=== PATIENT | male | born 1975 | race Hispanic/Latino ===

== ENCOUNTER → 2023-06-06 | Outpatient (CLI) | payer OTHER ==
[~2023-06-06] VITALS: Ht 15.2 cm; Wt 179.6 kg
== END | disposition home or self-care (01) ==
LOC: DTH 07:44
PROVIDERS: ATTEND Surgery
DX: Z71.3 Dietary counseling and surveillance (principal); E66.01 Morbid (severe) obesity due to excess calories; G47.33 Obstructive sleep apnea (adult) (pediatric); M19.90 Unspecified osteoarthritis, unspecified site; Z68.43 Body mass index [BMI] 50.0-59.9, adult
CPT/HCPCS: 97802

== ENCOUNTER → 2023-12-25 | Outpatient (CLI) | payer OTHER ==
[~2023-12-25] VITALS: Ht 15.2 cm; Wt 181.4 kg
== END | disposition home or self-care (01) ==
LOC: DTH 08:43
PROVIDERS: ATTEND Surgery
DX: E66.01 Morbid (severe) obesity due to excess calories (principal); G47.33 Obstructive sleep apnea (adult) (pediatric); K21.9 Gastro-esophageal reflux disease without esophagitis; E78.00 Pure hypercholesterolemia, unspecified
CPT/HCPCS: 97802

== ENCOUNTER → 2023-12-25 | Outpatient (CLI) | payer MEDICAID ==
[2023-12-25 10:53] LABS: BASOPHILS # (AUTO) 0.03 K/uL (0.00-0.20); BASOPHILS % (AUTO) 0.3 % (0.0-5.0); EOSINOPHILS # (AUTO) 0.36 K/uL (0.00-0.70); EOSINOPHILS % (AUTO) 3.9 % (0.0-8.0); HEMATOCRIT 44.5 % (42-54); IMMATURE GRANULOCYTE ABSOLUTE 0.05 K/uL (0-1); LYMPHOCYTES # (AUTO) 2.2 K/uL (1.0-4.8); LYMPHOCYTES % (AUTO) 24.3 % (21.0-51.0); MEAN CORPUSCULAR HEMOGLOBIN 28.8 pg (27.0-33.0); MEAN CORPUSCULAR HGB CONC 31.2 g/dL (32.0-36.0); MEAN CORPUSCULAR VOLUME 92.1 fL (79-99); MONOCYTES # (AUTO) 0.7 K/uL (0.1-1.0); MONOCYTES % (AUTO) 7.3 % (3.0-13.0); NEUTROPHILS # (AUTO) 5.9 K/uL (1.8-7.7); NEUTROPHILS % (AUTO) 63.7 % (40.0-77.0); PLATELET COUNT (AUTO) 283 K/uL (130-400); RED BLOOD CELL COUNT(AUTO) 4.83 MIL/uL (4.50-6.20); RED CELL DISTRIBUTION WIDTH 14.7 % (11.0-15.5); WHITE BLOOD COUNT (AUTO) 9.2 K/uL (4.8-10.8)
[2023-12-25 10:58] LABS: HEMOGLOBIN A1C 5.2 % (4.0-6.0)
[2023-12-25 11:14] LABS: ALBUMIN 3.5 g/dL (3.5-5.0); BILIRUBIN,TOTAL 0.7 mg/dL (0.2-1.0); CREATININE 0.7 mg/dL (0.5-1.3); POTASSIUM 4.2 mmol/L (3.5-5.1); T4 (THYROXINE) 5.4 ug/dL (4.7-13.3); THYROID STIMULATING HORMONE 2.84 uIU/mL (0.36-3.74)
[2023-12-25 11:27] LABS: MAGNESIUM 2.2 mg/dL (1.80-2.40)
== END | disposition home or self-care (01) ==
LOC: LAB 09:23
PROVIDERS: ATTEND Surgery
DX: G47.33 Obstructive sleep apnea (adult) (pediatric) (principal); E66.01 Morbid (severe) obesity due to excess calories; M47.815 Spondylosis without myelopathy or radiculopathy, thoracolumbar region; E78.00 Pure hypercholesterolemia, unspecified; K21.9 Gastro-esophageal reflux disease without esophagitis; Z68.44 Body mass index [BMI] 60.0-69.9, adult
CPT/HCPCS: 36415; 71046; 80053; 80061; 82306; 82607; 82746; 83036; 83540; 83735; 84207; 84425; 84436; 84443; 84446; 84481; 84590; 84630; 85025

== ENCOUNTER → 2024-01-21 | Outpatient (CLI) | payer OTHER | END | disposition home or self-care (01) | LOC: DTH 15:03 | PROVIDERS: ATTEND Surgery | DX: E66.01 Morbid (severe) obesity due to excess calories (principal); G47.33 Obstructive sleep apnea (adult) (pediatric); K21.9 Gastro-esophageal reflux disease without esophagitis; E78.00 Pure hypercholesterolemia, unspecified; Z68.44 Body mass index [BMI] 60.0-69.9, adult; Z71.3 Dietary counseling and surveillance | CPT/HCPCS: 97803 ==

== ENCOUNTER → 2024-02-19 | Outpatient (CLI) | payer MEDICAID, OTHER | END | disposition home or self-care (01) | LOC: SHCH 08:10 | PROVIDERS: ATTEND Internal Medicine | DX: R06.02 Shortness of breath (principal) | CPT/HCPCS: 93306 ==

== ENCOUNTER → 2024-02-19 | Outpatient (CLI) | payer OTHER | END | disposition home or self-care (01) | LOC: DTH 15:16 | PROVIDERS: ATTEND Surgery | DX: E66.01 Morbid (severe) obesity due to excess calories (principal); Z71.3 Dietary counseling and surveillance; G47.33 Obstructive sleep apnea (adult) (pediatric); K21.9 Gastro-esophageal reflux disease without esophagitis; E78.00 Pure hypercholesterolemia, unspecified | CPT/HCPCS: 97803 ==

== ENCOUNTER → 2024-03-19 | Outpatient (CLI) | payer SELFPAY | END | disposition home or self-care (01) | LOC: DTH 10:58 | PROVIDERS: ATTEND Surgery | DX: E66.01 Morbid (severe) obesity due to excess calories (principal); G47.33 Obstructive sleep apnea (adult) (pediatric); K21.9 Gastro-esophageal reflux disease without esophagitis; E78.00 Pure hypercholesterolemia, unspecified; Z68.44 Body mass index [BMI] 60.0-69.9, adult; Z71.3 Dietary counseling and surveillance | CPT/HCPCS: 97803 ==

== ENCOUNTER → 2024-05-27 | Outpatient (CLI) | payer OTHER | END | disposition home or self-care (01) | LOC: DTH 05-19 08:57 | PROVIDERS: ATTEND Surgery | DX: E66.01 Morbid (severe) obesity due to excess calories (principal); G47.33 Obstructive sleep apnea (adult) (pediatric); K21.9 Gastro-esophageal reflux disease without esophagitis; E78.00 Pure hypercholesterolemia, unspecified; Z71.3 Dietary counseling and surveillance; Z68.44 Body mass index [BMI] 60.0-69.9, adult | CPT/HCPCS: 97803 ==

== ENCOUNTER → 2024-06-23 | Outpatient (CLI) | payer OTHER | END | disposition home or self-care (01) | LOC: DTH 15:22 | PROVIDERS: ATTEND Surgery | DX: E66.01 Morbid (severe) obesity due to excess calories (principal); G47.33 Obstructive sleep apnea (adult) (pediatric); E78.00 Pure hypercholesterolemia, unspecified; K21.9 Gastro-esophageal reflux disease without esophagitis; Z71.3 Dietary counseling and surveillance; Z68.44 Body mass index [BMI] 60.0-69.9, adult | CPT/HCPCS: 97803 ==

== ENCOUNTER 2024-06-29 06:47 | Day surgery (SDC) | payer MEDICAID ==
[2024-06-29] VITALS (14 sets, daily range): BP systolic 100–138; BP diastolic 55–79; PULSE 59–131; RESP 16–18; TEMP 97.2–97.6
[~2024-06-29 06:47] MED LIST: ASPI-1197 PO; ATOR20TA65 PO; DULO20CA18 PO; MULT-1367 PO; TRAZ-185 PO
[2024-06-29] MEDS ORDERED: proPOFol 10 MG/ML 20ML VIAL IV ONE (08:14)
[2024-06-29] MEDS ORDERED: ketaMINE 50MG/ML SYRINGE 50 MG/ML DISP.SYRIN ONE (08:14)
[2024-06-29] MEDS: 0.9%NACL 1000ML 1,000 ML IV ONE (08:25)
--- NOTE | 2024-06-29 10:54 | OP ---
Operative Note: DATE OF PROCEDURE: 06/29/24 SURGEON: ADEOLA GARCIA MD WINERY CELLAR HAND: [] ANESTHESIA: [] Mac ANESTHESIOLOGIST/CIRCUIT RIDER: [] PREOPERATIVE DIAGNOSIS: [] GERD POSTOPERATIVE DIAGNOSIS: [] The same SYNOPSIS: [] PROCEDURE: [] Upper endoscopy ESTIMATED BLOOD LOSS: [] None INDICATIONS: [] DESCRIPTION OF PROCEDURE: [] With the patient in conscious sedation I inserted the endoscope through the mouth. We advanced this to the esophagus was completely normal. Z-line was at 40 cm. We entered the stomach and insufflated with air I was able to visualize the pylorus and placed the endoscope through the second portion of the duodenum. There was normal anatomy and no pathology. I retrieved the scope and a saw the stomach there was completely normal in the antrum. I retroflexed it and examined the body and fundus and there was no pathology. There was no hiatal hernia seen. Before retrieving the scope I suctioned all the fluid and air. Procedure was completed without any complication. ADEOLA GARCIA MD Jun 29, 2024 10:54
== END 2024-06-29 09:45 | disposition home or self-care (01) ==
LOC: ENDO 06:47 → DAH 06:47 → ENDO 09:45
PROVIDERS: ATTEND Surgery
DX: K21.9 Gastro-esophageal reflux disease without esophagitis (principal); I10 Essential (primary) hypertension; E66.01 Morbid (severe) obesity due to excess calories; Z68.44 Body mass index [BMI] 60.0-69.9, adult; Z79.82 Long term (current) use of aspirin; Z79.899 Other long term (current) drug therapy
CPT/HCPCS: 43235; J7030; J2704; J3490; A4620; A4215 ×2; A4223; A4222; A4221; A4663; A4606

== ENCOUNTER 2024-07-30 10:00 | Observation (INO) | payer MEDICAID ==
[~2024-07-30] VITALS: Ht 167.6 cm; Wt 174.0 kg
[2024-07-30 10:58] LABS: BASOPHILS # (AUTO) 0.04 K/uL (0.00-0.20); BASOPHILS % (AUTO) 0.4 % (0.0-5.0); EOSINOPHILS # (AUTO) 0.46 K/uL (0.00-0.70); EOSINOPHILS % (AUTO) 4.5 % (0.0-8.0); HEMATOCRIT 45.6 % (42-54); IMMATURE GRANULOCYTE ABSOLUTE 0.02 K/uL (0-1); LYMPHOCYTES # (AUTO) 2.6 K/uL (1.0-4.8); LYMPHOCYTES % (AUTO) 25.2 % (21.0-51.0); MEAN CORPUSCULAR HEMOGLOBIN 28.5 pg (27.0-33.0); MEAN CORPUSCULAR HGB CONC 31.4 g/dL (32.0-36.0); MEAN CORPUSCULAR VOLUME 90.8 fL (79-99); MONOCYTES # (AUTO) 0.6 K/uL (0.1-1.0); MONOCYTES % (AUTO) 5.9 % (3.0-13.0); NEUTROPHILS # (AUTO) 6.5 K/uL (1.8-7.7); NEUTROPHILS % (AUTO) 63.8 % (40.0-77.0); PLATELET COUNT (AUTO) 293 K/uL (130-400); RED BLOOD CELL COUNT(AUTO) 5.02 MIL/uL (4.50-6.20); RED CELL DISTRIBUTION WIDTH 14.3 % (11.0-15.5); WHITE BLOOD COUNT (AUTO) 10.2 K/uL (4.8-10.8)
[2024-07-30 11:04] LABS: CREATININE 0.8 mg/dL (0.5-1.3); POTASSIUM 4.5 mmol/L (3.5-5.1)
[2024-07-30 11:27] LABS: INR 1.01 (0.85-1.15); PROTHROMBIN TIME 10.9 SEC (9.6-11.6)
[2024-07-30 11:29] VITALS: BP 137/71; PULSE 54; RESP 18; TEMP 97.2
[2024-08-03] VITALS (19 sets, daily range): BP systolic 108–167; BP diastolic 66–94; PULSE 65–86; RESP 13–21; TEMP 96.7–98.8; O2SAT 97
[2024-08-03] MEDS: CLINDAMYCIN IVPB 900MG/50ML 0 ML IV ONE (08:58)
[2024-08-03] MEDS: LACTATED RINGERS 1000ML 1,000 ML IV ONE (09:28)
[2024-08-03] MEDS: ceFAZolin SODIUM 1 GM VIAL ONE (09:31)
[2024-08-03] MEDS: ceFAZolin SODIUM 2 GM VIAL ONE (09:31)
[2024-08-03] MEDS ORDERED: rocuRONium bROMide 10MG/1ML 5ML VL ONE (10:48)
[2024-08-03] MEDS ORDERED: NEOSTIGMINE METHYLSULFATE 1MG/ML IV ONE (10:48)
[2024-08-03] MEDS ORDERED: LIDOCAINE HCL MPF 1% 5ML VIAL ONE (10:48)
[2024-08-03] MEDS ORDERED: GLYCOPYRROLATE 0.2 MG/ML 5 ML VIAL ONE (10:48)
[2024-08-03] MEDS ORDERED: proPOFol 10 MG/ML 20ML VIAL IV ONE (10:48)
[2024-08-03] MEDS ORDERED: MIDAZOLAM HCL 1 MG/ML 2ML VIAL ONE (10:48)
[2024-08-03] MEDS ORDERED: FENTanyl CITRate PF 50 MCG/1 ML 5ML AMP IV ONE (10:49)
[2024-08-03] MEDS ORDERED: SUCCINYLCHOLINE CHLORIDE 20 MG/ML 10 ML VIAL ONE (11:07)
[2024-08-03] MEDS: ceFAZolin SODIUM 3 GM VIAL IVPB ONE (11:10)
[2024-08-03] MEDS ORDERED: ondanSETRON 4MG INJ ONE (11:23)
[2024-08-03] MEDS ORDERED: LIDOCAINE HCL 1% 20 ML VIAL ONE ×2 (11:33→11:44)
[2024-08-03] MEDS ORDERED: BUPIvacaine/PF 0.5% 30ML VIAL ONE (11:33)
[2024-08-03] MEDS ORDERED: ketOROlac 30MG VIAL (30MG/ML) ONE (13:56)
--- NOTE | 2024-08-03 14:19 | OP ---
Operative Note: DATE OF PROCEDURE: 08/03/24 SURGEON: ADEOLA GARCIA MD MELT DOWN FURNACE OPERATOR: [] ANESTHESIA: []general ANESTHESIOLOGIST/DEPUTY SHERIFF/INVESTIGATOR: [] PREOPERATIVE DIAGNOSIS: [] Morbid obesity POSTOPERATIVE DIAGNOSIS: [] The same SYNOPSIS: [] PROCEDURE: [] Robotic gastric bypass ESTIMATED BLOOD LOSS: [] Minimal INDICATIONS: [] DESCRIPTION OF PROCEDURE: []With the patient prepped and draped in the usual fashion and after timeout we placed a left upper quadrant Veress needle and the abdomen was insufflated. A supraumbilical incision was done after placing local anesthesia and an 8 mm da Claire trocar was inserted. Under direct vision we remove the needle and I placed a 12 mm trocar in the left side of the abdomen and under direct vision and a 5 mm trocar in the right side to place a liver retractor. I then proceeded to place a 12 mm trocar in the left side of the abdomen in the midclavicular line and a 8 mm trocar lateral left side. We injected lidocaine before every incision. After adequate placement of the trocars and the placement of the liver retractor I injected 20 cc 0.25% Marcaine on each side of the abdomen under direct vision as an abdominal block. I docked the robot and then went to the console. Attention was given to the large omentum and this was divided with the vessel sealer. After this division identified the ligament of Treitz and a point 50 cm was identified and a 2-0 silk suture was placed. Attention was then given to the upper stomach. A bougie was visualized and I start developing a window behind the stomach from the lesser sac. The lesser sac vasculature was divided with the vesel sealer. After creating the window a blue stapler was placed and we started transecting the stomach. A couple more of blue and white stapler were placed just besides the bougie in order to create a tubular small pouch. This was done without any complications. I brought the small bowel that was previously identified besides the newly created pouch and I then opened the smal l bowel and the pouch. A [id number] jejunojejunostomy was created about 40 mm with a blue stapler. I then closed the enterotomy with a V-Loc 2 0 in 2 layers. The bougie was passed through the anastomosis before placing the second layer. After adequate hemostasis and being comfortable with the closure of the enterostomy and the gastrostomy I divided the small bowel proximal to the anastomosis. At this point I insufflated air through the bougie and submerged the anastomosis under water and no bubbles were seen. I confirmed this also with an endoscopy that was done and we insufflated the pouch of the passing also the anastomosis. In order to do that we removed the bougie. I ran the bowel from the gastrojejunostomy about 100 cm in order to do a [id number] jejunojejunostomy. This was created with a white staplers and the enterotomy was closed with a white stapler without narrowing the alimentary tract. I then closed the potential side for internal hernia with a V-Loc 2-0 running. After confirming adequate hemostasis and suctioning I then remove all the instruments and trocars under direct vision. We undocked the robot and all incisions were closed with 4-0 Monocryl and Steri-Strips. ADEOLA GARCIA MD Aug 03, 2024 14:19
[2024-08-03] MEDS: MEPERIDINE-PF 25 MG/ML SYG ONE (15:17)
[2024-08-03] MEDS: SUGAMMADEX SODIUM 200 MG/2 ML VIAL IV ONE (15:19)
[2024-08-03] MEDS: INSULIN humuLIN R 100 UNIT/ML 3ML SQ SCH (16:30)
[2024-08-03] MEDS: morPHINE 4 MG SYG IVP PRN (18:55)
[2024-08-03] MEDS ORDERED: hydrALAZine 20MG/ML VIAL IV PRN (19:00)
[2024-08-03] MEDS: LACTATED RINGERS 1000ML 1,000 ML IV SCH (19:43)
[2024-08-03] MEDS: ceFAZolin SODIUM 2 GM VIAL IVPB SCH (19:44)
[2024-08-03] MEDS ORDERED: MAGNESIUM 2GM PREMIX 50ML 50 ML IV PRN (20:30)
[2024-08-03] MEDS ORDERED: PoTASSium chloRIDE 20MEQ/100ML 100 ML IV PRN (20:30)
[2024-08-03] MEDS ORDERED: PoTASSium chl 10% ELIXIR 20MEQ 20 MEQ/15 ML UDCUP PO PRN (20:30)
[2024-08-03] MEDS ORDERED: PoTASSium chloRIDE 20MEQ ER 20 MEQ ERTAB PO PRN (20:30)
--- NOTE | 2024-08-03 20:47 | CONS ---
[facility] CONSULTATION NOTE Date of Service: Aug 03, 2024 Reason for Consultation: [ Medical management ] Requesting Physician: [ ] PCP: Gabino Mccloud HISTORY OF PRESENT ILLNESS: This is a 48-year-old male with past medical history of morbid obesity, GERD, obstructive sleep apnea on CPAP at home, hyperlipidemia, hypertension, peripheral neuropathy, anxiety disorder and depression who underwent status post robotic gastric bypass today 08/03/[address] Her. Seen and examined patient in room 414,awake,alert and oriented ,patient appears comfortablestates he just received Morphine.Patient reports he started burping.Patient is on IVF and on oxygen supplementation.Patient denies fever,chills,nausea,vomiting,cough,chest pain,palpitation and shortness of breath.Latest V/S T 98.2, rate 79, blood pressure 167/94, saturation 98% on 2 L nasal cannula. Hospitalist is consulted for medical management. REVIEW OF SYSTEMS CONSTITUTIONAL: Denies fevers, chills, or night sweats. No unintentional weight loss reported. NEUROLOGICAL: Denies headache, amaurosis fugax, motor weakness, sensory deficit, vertigo/spinning sensation, gait abnormalities, or tremors. ENT: No hearing loss, otalgia, otorrhea, rhinitis, rhinorrhea, hoarseness, or sore throat. CARDIOVASCULAR: Denies any exertional angina, dyspnea on exertion, orthopnea, paroxysmal nocturnal dyspnea, palpitations, life-threatening arrhythmias, claudication. PULMONARY: Denies any shortness of breath, cough, phlegm/sputum, hemoptysis, pleuritic chest pain. SLEEP: Denies morning headaches, daytime somnolence or napping. Denies difficulty falling asleep, staying asleep, waking from sleep. Denies knowledge of snoring. GASTROINTESTINAL: Denies any type of dysphagia to either liquids or solids. Denies nausea, vomiting, pyrosis, early satiety, abdominal pain, diarrhea, constipation, or changes in stool consistency or caliber. Denies coffee-ground emesis, hematemesis, hematochezia, or melanotic stools. GENITOURINARY: Denies frequency, urgency, nocturia, hematuria or incontinence (Storage/Irritative symptoms.) Low urinary stream, straining to void, urinary intermittency or hesitancy, splitting of the voiding stream, terminal dribbling. ENDOCRINOLOGIC: Denies polyuria, polydipsia, polyphagia or heat/cold intolerances. HEMATOLOGIC: Denies thrombophilia/previous clots, or coagulopathy/bleeding disorders. ONCOLOGIC: Denies personal history of malignancy. DERMATOLOGIC: Denies rashes or pruritus. PSYCHIATRIC: Denies any suicidal or homicidal ideation. Denies hallucinations. PAST MEDICAL HISTORY: [ morbid obesity, GERD, obstructive sleep apnea on CPAP at home, hyperlipidemia, hypertension, peripheral neuropathy, anxiety disorder and depression ] PAST SURGICAL HISTORY: [ Bilateral knee replace and hardware removal of right knee 2021 ] PAST SOCIAL HISTORY: [ Patient states he used to smoke two packs of cigarettes a day for 20 years and planning to quit. Patient admits to smoking marijuana last use was yesterday but denies cocaine use and alcohol use ] FAMILY HISTORY: [ Heart disease, diabetes and hypertension ] Coded Allergies: No Known Allergies (Verified Allergy, Unknown, 06/26/24) PHYSICAL EXAM GENERAL APPEARANCE: The patient is awake, alert, and oriented, in no acute cardiopulmonary distress. NEUROLOGICAL: Cranial nerves II-XII grossly intact. Motor is 5/5 in bilateral upper and lower extremities proximal to distal. No sensory deficits. HEENT: Face is symmetric. Pupils are equal and reactive. Extraocular movements are intact. NECK: Supple. No JVD. No thyromegaly. No submental, submandibular, pre- /postauricular, occipital or supraclavicular lymphadenopathy. CHEST: Normal chest expansion. No Telemetry. LUNGS: Absence of any rales, rhonchi or any wheezing. CARDIOVASCULAR: Regular. S1 and S2 normal. No appreciable rubs, murmurs or gallops. ABDOMEN: Soft, nontender, and nondistended. There is no rebound, voluntary guarding, or rigidity. : Deferred. No Felder. EXTREMITIES: Non-edematous and not cyanotic. No clubbing. Good capillary refill. SKIN: No skin breakdown. Vital Sign (Last 24 Hours) 08/03/24 15:45 O2 Flow Rate 2.0 LABS: Laboratory: Test 08/03/24 14:51 Range/Units Whole Blood Glucose 146 H 70-110 MG/DL DIAGNOSTICS / RADIOLOGY: [ ] ASSESSMENT: Severe Morbid Obesity S/P Robotic gastric bypass on 08/03/2024 performed bypato FRANK POA Obstructive Sleep Apnea on CPAP Therapy at home POA Hypertension POA Hyperlipidemia POA Peripheral Neuropathy POA Active cigarette smoker POA Positive marijuana use POA History of Complete Bilateral knee replacement POA PLAN: Will continue to follow patient in medical surgical floor Continue IV fluids We will continue on hydralazine 10 mg IV q.6 hours p.r.n. for systolic blood pressure above 160 We will continue famotidine 20 mg b.i.d. for GI prophylaxis We will continue sliding scale insulin a.c. and HS and hypoglycemia protocol We will replace electrolytes as needed per protocol We will add p.r.n. medication for pain nausea fever and vomiting Counseled on cigarette smoking and marijuana use cessation Case management service requested We will check labs in a.m. Further recommendations to follow depending upon hospitalization course Case discussed with the attending MD and came up with the above treatment and plan of care ADVANCED CARE PLANNING 1. Which of the following were discussed? Hospice Care - No Therapeutic options - Yes Advance Directives - No Other discussions - 2. Discussed with who? Patient 3. Voluntary nature of this service was explained to the patient? Yes 4. Amount of time spent - 18_ 5. Reviewed by Physician? (if this service was performed by NPP) Yes Patient seen and examined by me. Agree with note by CASH MANAGEMENT CLERK SEE ADDITIONAL ORDERS PER CHART DISCUSSED WITH NURSING STAFF KRISTEL CEJA COMMUNICATIONS SUPERINTENDENT Aug 03, 2024 20:47
[2024-08-03] MEDS: ENOXAPARIN SODIUM 30 MG/0.3 ML SQ SCH (21:24)
[2024-08-03] MEDS: FAMOTIDINE 20MG VIAL IV SCH (21:24)
[2024-08-03] MEDS: ketOROlac 30MG VIAL (30MG/ML) IM PRN (21:32)
[2024-08-04] VITALS (7 sets, daily range): BP systolic 117–147; BP diastolic 65–84; PULSE 67–85; RESP 16–20; TEMP 98–99; O2SAT 96–97
[2024-08-04] MEDS: ceFAZolin SODIUM 2 GM VIAL IVPB ONE (02:57)
[2024-08-04 05:18] LABS: BASOPHILS # (AUTO) 0.03 K/uL (0.00-0.20); BASOPHILS % (AUTO) 0.2 % (0.0-5.0); EOSINOPHILS # (AUTO) 0.01 K/uL (0.00-0.70); EOSINOPHILS % (AUTO) 0.1 % (0.0-8.0); HEMATOCRIT 36.3 % (42-54); IMMATURE GRANULOCYTE ABSOLUTE 0.05 K/uL (0-1); LYMPHOCYTES # (AUTO) 1.8 K/uL (1.0-4.8); LYMPHOCYTES % (AUTO) 14.1 % (21.0-51.0); MEAN CORPUSCULAR HEMOGLOBIN 28.4 pg (27.0-33.0); MEAN CORPUSCULAR HGB CONC 30.9 g/dL (32.0-36.0); MEAN CORPUSCULAR VOLUME 91.9 fL (79-99); MONOCYTES # (AUTO) 1.1 K/uL (0.1-1.0); MONOCYTES % (AUTO) 8.8 % (3.0-13.0); NEUTROPHILS # (AUTO) 9.5 K/uL (1.8-7.7); NEUTROPHILS % (AUTO) 76.4 % (40.0-77.0); PLATELET COUNT (AUTO) 268 K/uL (130-400); RED BLOOD CELL COUNT(AUTO) 3.95 MIL/uL (4.50-6.20); RED CELL DISTRIBUTION WIDTH 14.4 % (11.0-15.5); WHITE BLOOD COUNT (AUTO) 12.4 K/uL (4.8-10.8)
[2024-08-04 05:36] LABS: CREATININE 1.3 mg/dL (0.5-1.3); POTASSIUM 4.4 mmol/L (3.5-5.1)
[2024-08-04 05:41] LABS: HEMOGLOBIN A1C 5.4 % (4.0-6.0)
[2024-08-04 05:58] LABS: THYROID STIMULATING HORMONE 0.95 uIU/mL (0.36-3.74)
--- NOTE | 2024-08-04 11:11 | PN ---
This is a 48-year-old male with gastric bypass postop day one by Dr. Foss Interval history: This 48-year-old male seen in his room resting Patient needing walker to ambulate today Patient tolerating bariatric phase one diet Incisions clean and dry Patient has received Lovenox for today Labs and vitals unremarkable Physical exam General: Awake alert and oriented Heart: Regular rate and rhythm} Lungs: Clear to auscultation no distress Abdomen: [Soft, nontender, nondistended Assessment : This is a 48-year-old male status post gastric bypass postop day one Plan: Patient to remain overnight for observation PT to evaluate and make recommendations for potential discharge Patient to continue with Lovenox daily\ Diet to remain on bariatric phase one for the next week Dr. Foss to be updated in patient's status and surgery to follow patient closely Vitals/Labs Vital Signs Date Time Temp Pulse Resp B/P (MAP) Pulse Ox O2 Delivery O2 Flow Rate FiO2 08/04/24 07:05 98.2 79 20 143/84 96 Room Air 21 08/03/24 21:24 0 Laboratory Tests 08/04/24 05:02 Medications Current Medications Clindamycin HCl/ Dextrose 0 ml @ As Directed STK-MED ONCE IV; Start 08/03/24 at 08:58; Stop 08/03/24 at 08:58; Status DC Lactated Ringer's 1,000 ml @ As Directed STK-MED ONCE IV Last administered on 08/03/24at 09:28; Start 08/03/24 at 08:58; Stop 08/03/24 at 08:58; Status DC Cefazolin Sodium 1 gm STK-MED ONCE .ROUTE; Start 08/03/24 at 09:31; Stop 08/03/24 at 09:32; Status DC Cefazolin Sodium 2 gm STK-MED ONCE .ROUTE; Start 08/03/24 at 09:31; Stop 08/03/24 at 09:32; Status DC Lidocaine HCl 5 ml STK-MED ONCE .ROUTE; Start 08/03/24 at 10:48; Stop 08/03/24 at 10:48; Status DC Propofol 200 mg STK-MED ONCE IV; Start 08/03/24 at 10:48; Stop 08/03/24 at 10:48; Status DC Glycopyrrolate 1 mg STK-MED ONCE .ROUTE; Start 08/03/24 at 10:48; Stop 08/03/24 at 10:49; Status DC Neostigmine Methylsulfate 10 mg STK-MED ONCE IV; Start 08/03/24 at 10:48; Stop 08/03/24 at 10:49; Status DC Midazolam HCl 2 mg STK-MED ONCE .ROUTE; Start 08/03/24 at 10:48; Stop 08/03/24 at 10:49; Status DC Rocuronium Pamplin 50 mg STK-MED ONCE .ROUTE; Start 08/03/24 at 10:48; Stop 08/03/24 at 10:49; Status DC Fentanyl Citrate 250 mcg STK-MED ONCE IV; Start 08/03/24 at 10:49; Stop 08/03/24 at 10:49; Status DC Succinylcholine Chloride 200 mg STK-MED ONCE .ROUTE; Start 08/03/24 at 11:07; Stop 08/03/24 at 11:07; Status DC Ondansetron HCl 4 mg STK-MED ONCE .ROUTE; Start 08/03/24 at 11:23; Stop 08/03/24 at 11:23; Status DC Lidocaine HCl 20 ml STK-MED ONCE .ROUTE; Start 08/03/24 at 11:33; Stop 08/03/24 at 11:33; Status DC Bupivacaine HCl 5 mg STK-MED ONCE .ROUTE; Start 08/03/24 at 11:33; Stop 08/03/24 at 11:33; Status DC Lidocaine HCl 20 ml STK-MED ONCE .ROUTE; Start 08/03/24 at 11:44; Stop 08/03/24 at 11:44; Status DC Cefazolin Sodium 3 gm STK-MED ONCE IVPB Last administered on 08/03/24at 11:10; Start 08/03/24 at 11:10; Stop 08/03/24 at 12:12; Status DC Lidocaine HCl 40 ml STK-MED ONCE MISC Last administered on 08/03/24at 11:13; Start 08/03/24 at 11:13; Stop 08/03/24 at 12:12; Status DC Bupivacaine HCl 150 mg STK-MED ONCE INJ Last administered on 08/03/24at 11:14; Start 08/03/24 at 11:14; Stop 08/03/24 at 12:12; Status DC Ketorolac Tromethamine 30 mg STK-MED ONCE .ROUTE; Start 08/03/24 at 13:56; Stop 08/03/24 at 13:56; Status DC Lactated Ringer's 1,000 ml @ 125 mls/hr Q8H IV Last administered on 08/04/24at 02:51; Start 08/03/24 at 14:30; Stop 09/02/24 at 14:29 Morphine Sulfate 4 mg Q4H PRN IVP Last administered on 08/04/24at 02:19; Start 08/03/24 at 14:30; Stop 08/08/24 at 14:29 Ondansetron HCl 4 mg Q6H PRN IVP; Start 08/03/24 at 14:30; Stop 09/02/24 at 14:29 Famotidine 20 mg BID IV Last administered on 08/04/24at 08:12; Start 08/03/24 at 21:00; Stop 09/02/24 at 20:59 Enoxaparin Sodium 30 mg BID SQ Last administered on 08/04/24at 08:13; Start 08/03/24 at 21:00; Stop 09/02/24 at 20:59 Insulin Human Regular INSULIN SLIDING SCAL... ACHS SQ; Start 08/03/24 at 16:30; Stop 09/02/24 at 16:29 Ketorolac Tromethamine 30 mg Q6H PRN IM Last administered on 08/03/24at 21:32; Start 08/03/24 at 14:30; Stop 08/08/24 at 14:29 Cefazolin Sodium 2 gm Q8H IVPB Last administered on 08/04/24at 02:51; Start 08/03/24 at 14:30; Stop 08/03/24 at 22:31; Status DC Meperidine HCl 25 mg STK-MED ONCE .ROUTE Last administered on 08/03/24at 15:17; Start 08/03/24 at 15:15; Stop 08/03/24 at 15:15; Status DC Hydralazine HCl 10 mg Q6H PRN IV; Start 08/03/24 at 19:00; Stop 09/02/24 at 18:59 Magnesium Sulfate 50 ml @ 0 mls/hr PROTOCOL PRN IV; Start 08/03/24 at 20:30; Stop 09/02/24 at 20:29 Potassium Chloride 100 ml @ 100 mls/hr AD PRN IV; Start 08/03/24 at 20:30; Stop 09/02/24 at 20:29 Potassium Chloride 20 meq AD PRN PO; Start 08/03/24 at 20:30; Stop 09/02/24 at 20:29 Potassium Chloride 20 meq AD PRN PO; Start 08/03/24 at 20:30; Stop 09/02/24 at 20:29 Cefazolin Sodium 2 gm ONCE ONCE IVPB; Start 08/04/24 at 03:44; Stop 08/04/24 at 03:45; Status DC MEHDI ESPINO Jr. Aug 04, 2024 11:11
--- NOTE | 2024-08-04 12:00 | NUR ---
DCP CM MET WITH PT ASSESSMENT DONE. PATIENT IS SEMI-INDEPENDENT PRIOR TO SURGERY, LIVES AT HOME ALONE. PT HAS A PROVIDER AND SCOOTER. DENIES ANY OTHER EQUIPMENT/SERVICES. FEELS SAFE TO GO BACK HOME, ARRANGES OWN NEEDS, FRIEND SIMON ABLE TO ASSIST WITH TRANSPORTATION NECESSARY. DCP HOME ONCE STABLE. CM TO CONTINUE TO FOLLOW UP. Addendum: 08/04/24 at 1201 by VALDEZ ESPINO LVN CM Amended: Links added.
--- NOTE | 2024-08-04 12:10 | PN ---
[facility] PROGRESS NOTE Date of Service: Aug 04, 2024 Time of Service: 12:09 SUBJECTIVE: [ ] The patient is awake alert oriented x3, s/p Gastric bypass: is recuperating well, tolerating diet. will follow surgeon recommendations. primary nurse reports no events overnight. REVIEW OF SYSTEMS CONSTITUTIONAL: Denies fevers, chills, or night sweats. No unintentional weight loss reported. NEUROLOGICAL: Denies headache, amaurosis fugax, motor weakness, sensory deficit, vertigo/spinning sensation, gait abnormalities, or tremors. ENT: No hearing loss, otalgia, otorrhea, rhinitis, rhinorrhea, hoarseness, or sore throat. CARDIOVASCULAR: Denies any exertional angina, dyspnea on exertion, orthopnea, paroxysmal nocturnal dyspnea, palpitations, life-threatening arrhythmias, claudi cation. PULMONARY: Denies any shortness of breath, cough, phlegm/sputum, hemoptysis, pleuritic chest pain. SLEEP: Denies morning headaches, daytime somnolence or napping. Denies difficulty falling asleep, staying asleep, waking from sleep. Denies knowledge of snoring. GASTROINTESTINAL: Denies any type of dysphagia to either liquids or solids. Denies nausea, vomiting, pyrosis, early satiety, abdominal pain, diarrhea, constipation, or changes in stool consistency or caliber. Denies coffee-ground emesis, hematemesis, hematochezia, or melanotic stools. GENITOURINARY: Denies frequency, urgency, nocturia, hematuria or incontinence (Storage/Irritative symptoms.) Low urinary stream, straining to void, urinary intermittency or hesitancy, splitting of the voiding stream, terminal dribbling. ENDOCRINOLOGIC: Denies polyuria, polydipsia, polyphagia or heat/cold intolerances. HEMATOLOGIC: Denies thrombophilia/previous clots, or coagulopathy/bleeding disorders. ONCOLOGIC: Denies personal history of malignancy. DERMATOLOGIC: Denies rashes or pruritus. PSYCHIATRIC: Denies any suicidal or homicidal ideation. Denies hallucinations. PHYSICAL EXAM GENERAL APPEARANCE: The patient is awake, alert, and oriented, in no acute cardiopulmonary distress. NEUROLOGICAL: Cranial nerves II-XII grossly intact. Motor is 5/5 in bilateral upper and lower extremities proximal to distal. No sensory deficits. HEENT: Face is symmetric. Pupils are equal and reactive. Extraocular movements are intact. NECK: Supple. No JVD. No thyromegaly. No submental, submandibular, pre- /postauricular, occipital or supraclavicular lymphadenopathy. CHEST: Normal chest expansion. No Telemetry. LUNGS: Absence of any rales, rhonchi or any wheezing. CARDIOVASCULAR: Regular. S1 and S2 normal. No appreciable rubs, murmurs or gallops. ABDOMEN: Soft, nontender, and nondistended. There is no rebound, voluntary guarding, or rigidity. : Deferred. No Felder. EXTREMITIES: Non-edematous and not cyanotic. No clubbing. Good capillary refill. SKIN: No skin breakdown. Vital Signs (last 8hr) Date Time Temp Pulse Resp B/P (MAP) Pulse Ox O2 Delivery O2 Flow Rate FiO2 08/04/24 07:05 98.2 79 20 143/84 96 Room Air 21 LABS: Laboratory: Test 08/04/24 10:50 08/04/24 05:02 Range/Units Whole Blood Glucose 97 70-110 MG/DL White Blood Count 12.4 H 4.8-10.8 K/uL Red Blood Count 3.95 L 4.50-6.20 MIL/uL Hemoglobin 11.2 L 14.0-18.0 g/dL Hematocrit 36.3 L 42-54 % Mean Corpuscular Volume 91.9 79-99 fL Mean Corpuscular Hemoglobin 28.4 27.0-33.0 pg Mean Corpuscular Hemoglobin Concent 30.9 L 32.0-36.0 g/dL Red Cell Distribution Width 14.4 11.0-15.5 % Platelet Count 268 130-400 K/uL Mean Platelet Volume 11.2 H 7.5-10.5 fL Immature Granulocyte % (Auto) 0.4 0-1 % Neutrophils (%) (Auto) 76.4 40.0-77.0 % Lymphocytes (%) (Auto) 14.1 L 21.0-51.0 % Monocytes (%) (Auto) 8.8 3.0-13.0 % Eosinophils (%) (Auto) 0.1 0.0-8.0 % Basophils (%) (Auto) 0.2 0.0-5.0 % Neutrophils # (Auto) 9.5 H 1.8-7.7 K/uL Lymphocytes # (Auto) 1.8 1.0-4.8 K/uL Monocytes # (Auto) 1.1 H 0.1-1.0 K/uL Eosinophils # (Auto) 0.01 0.00-0.70 K/uL Basophils # (Auto) 0.03 0.00-0.20 K/uL Absolute Immature Granulocyte (auto 0.05 0-1 K/uL Nucleated Red Blood Cells 0.0 0.0-0.19 % Red Blood Cell Morphology See comments Sodium Level 138 136-145 mmol/L Potassium Level 4.4 3.5-5.1 mmol/L Chloride Level 104 101-111 mmol/L Carbon Dioxide Level 29 21-32 mmol/L Blood Urea Nitrogen 14 7-18 mg/dL Creatinine 1.3 0.5-1.3 mg/dL Glomerular Filtration Rate Calc 67 >90 mL/min Random Glucose 99 70-105 mg/dL Hemoglobin A1c 5.4 4.0-6.0 % Estimated Average Glucose (eAG) 108 70-126 mg/dL Total Calcium 7.8 L 8.5-10.1 mg/dL Magnesium Level 2.00 1.80-2.40 mg/dL Triglycerides Level 61 30-200 mg/dL Cholesterol Level 73 # <200 mg/dL LDL Cholesterol 41 0-99 mg/dL HDL Cholesterol 30 29-71 mg/dL Thyroid Stimulating Hormone (TSH) 0.95 # 0.36-3.74 uIU/mL Current Medications Medications (Trade) Dose Ordered Sig/Melo Route PRN Reason Start Time Stop Time Status Last Admin Dose Admin Cefazolin Sodium (Ancef) 2 gm Q8H IVPB 08/03/24 14:30 08/03/24 22:31 DC 08/04/24 02:51 2 GM Enoxaparin Sodium (Lovenox) 30 mg BID SQ 08/03/24 21:00 09/02/24 20:59 08/04/24 08:13 30 MG Famotidine (Pepcid 20mg Vial) 20 mg BID IV 08/03/24 21:00 09/02/24 20:59 08/04/24 08:12 20 MG Hydralazine HCl (APRESOLine 20MG INJ) 10 mg Q6H PRN IV ADMINISTER FOR SBP > 160 08/03/24 19:00 09/02/24 18:59 Insulin Human Regular (humuLIN R 100 UNIT/ML 3ML) INSULIN SLIDING SCAL... ACHS SQ 08/03/24 16:30 09/02/24 16:29 Ketorolac Tromethamine (toRADol) 30 mg Q6H PRN IM MODERATE PAIN (4-6) 08/03/24 14:30 08/08/24 14:29 08/03/24 21:32 30 MG Lactated Ringer's 1,000 ml @ 125 mls/hr Q8H IV 08/03/24 14:30 09/02/24 14:29 08/04/24 02:51 125 MLS/HR Magnesium Sulfate 50 ml @ 0 mls/hr PROTOCOL PRN IV OTHER [SEE ORDER COMMENTS] 08/03/24 20:30 09/02/24 20:29 Morphine Sulfate (morPHINE 4MG SYG) 4 mg Q4H PRN IVP SEVERE PAIN (7-10) 08/03/24 14:30 08/08/24 14:29 08/04/24 02:19 4 MG Ondansetron HCl (zoFRAN 4MG INJ) 4 mg Q6H PRN IVP NAUSEA/VOMITING 08/03/24 14:30 09/02/24 14:29 Potassium Chloride 100 ml @ 100 mls/hr AD PRN IV POTASSIUM PROTOCOL 08/03/24 20:30 09/02/24 20:29 Potassium Chloride (K-Dur/Klor-Con 20meq) 20 meq AD PRN PO POTASSIUM PROTOCOL 08/03/24 20:30 09/02/24 20:29 Potassium Chloride (KCl 10% Elixir 20meq/15ml) 20 meq AD PRN PO POTASSIUM PROTOCOL 08/03/24 20:30 09/02/24 20:29 DIAGNOSTICS / RADIOLOGY: [ ] ASSESSMENT: Severe Morbid Obesity S/P Robotic gastric bypass on 08/03/2024 performed by pato FRANK POA Obstructive Sleep Apnea on CPAP Therapy at home POA Hypertension POA Hyperlipidemia POA Peripheral Neuropathy POA Active cigarette smoker POA Positive marijuana use POA History of Complete Bilateral knee replacement POA PLAN: we will continue to followed surgeon post operative recommendations diet: CLD bariatric continue famotidine 20 mg b.i.d. for GI prophylaxis continue sliding scale insulin a.c. and HS and hypoglycemia protocol continue replace electrolytes as needed per protocol p.r.n. medication for pain nausea fever and vomiting Counseled on cigarette smoking and marijuana use cessation Case management service requested We will check labs in a.m. Further recommendations to follow depending upon hospitalization course Case discussed with the attending MD and came up with the above treatment and plan of care ATTESTATION BY PHYSICIAN I have seen and examined the patient. I reviewed the documentation, medical decision making, and treatment plan as noted by the mid-level provider above. I agree with the findings and plan of care. PAUL WELCH MD, ELIZABETH NP Aug 04, 2024 12:10
[2024-08-04] MEDS: ondanSETRON 4MG INJ IVP PRN (17:50)
[2024-08-05] VITALS (7 sets, daily range): BP systolic 122–153; BP diastolic 60–82; PULSE 64–81; RESP 18–20; TEMP 97.9–98.9; O2SAT 96
[2024-08-05 09:37] LABS: MEAN CORPUSCULAR HEMOGLOBIN 28.6 pg (27.0-33.0); MEAN CORPUSCULAR HGB CONC 31.1 g/dL (32.0-36.0); MEAN CORPUSCULAR VOLUME 91.9 fL (79-99); RED BLOOD CELL COUNT(AUTO) 3.81 MIL/uL (4.50-6.20); RED CELL DISTRIBUTION WIDTH 14.6 % (11.0-15.5); WHITE BLOOD COUNT (AUTO) 10.6 K/uL (4.8-10.8)
[2024-08-05 09:53] LABS: ALBUMIN 3.1 g/dL (3.5-5.0); BILIRUBIN,TOTAL 0.7 mg/dL (0.2-1.0); CREATININE 1.3 mg/dL (0.5-1.3); POTASSIUM 4.4 mmol/L (3.5-5.1); TOTAL PROTEIN, SERUM 7.1 g/dL (6.0-8.3)
--- NOTE | 2024-08-05 10:51 | PN ---
Interval history: This is a 48-year-old male status post gastric bypass Patient is still requiring walker for ambulation Patient tolerating diet Patient is still with shoulder discomfort likely postoperative at this time Physical exam General: Awake alert and oriented Heart: Regular rate and rhythm} Lungs: Clear to auscultation no distress Abdomen: [Soft, nontender, nondistended Assessment : This is a 48-year-old male status post gastric bypass by Dr. Foss Plan: Patient to remain overnight for observation Possible discharge tomorrow Patient again to work with physical therapy Continued bariatric phase one diet Surgical team to follow patient closely Dr. Her to be updated in patient's status Vitals/Labs Vital Signs Date Time Temp Pulse Resp B/P (MAP) Pulse Ox O2 Delivery O2 Flow Rate FiO2 08/05/24 08:00 99.0 77 18 146/82 95 Room Air 21 08/04/24 19:15 0 Laboratory Tests 08/05/24 09:28 Medications Current Medications Clindamycin HCl/ Dextrose 0 ml @ As Directed STK-MED ONCE IV; Start 08/03/24 at 08:58; Stop 08/03/24 at 08:58; Status DC Lactated Ringer's 1,000 ml @ As Directed STK-MED ONCE IV Last administered on 08/03/24at 09:28; Start 08/03/24 at 08:58; Stop 08/03/24 at 08:58; Status DC Cefazolin Sodium 1 gm STK-MED ONCE .ROUTE; Start 08/03/24 at 09:31; Stop 08/03/24 at 09:32; Status DC Cefazolin Sodium 2 gm STK-MED ONCE .ROUTE; Start 08/03/24 at 09:31; Stop 08/03/24 at 09:32; Status DC Lidocaine HCl 5 ml STK-MED ONCE .ROUTE; Start 08/03/24 at 10:48; Stop 08/03/24 at 10:48; Status DC Propofol 200 mg STK-MED ONCE IV; Start 08/03/24 at 10:48; Stop 08/03/24 at 10:48; Status DC Glycopyrrolate 1 mg STK-MED ONCE .ROUTE; Start 08/03/24 at 10:48; Stop 08/03/24 at 10:49; Status DC Neostigmine Methylsulfate 10 mg STK-MED ONCE IV; Start 08/03/24 at 10:48; Stop 08/03/24 at 10:49; Status DC Midazolam HCl 2 mg STK-MED ONCE .ROUTE; Start 08/03/24 at 10:48; Stop 08/03/24 at 10:49; Status DC Rocuronium Alexis 50 mg STK-MED ONCE .ROUTE; Start 08/03/24 at 10:48; Stop 08/03/24 at 10:49; Status DC Fentanyl Citrate 250 mcg STK-MED ONCE IV; Start 08/03/24 at 10:49; Stop 08/03/24 at 10:49; Status DC Succinylcholine Chloride 200 mg STK-MED ONCE .ROUTE; Start 08/03/24 at 11:07; Stop 08/03/24 at 11:07; Status DC Ondansetron HCl 4 mg STK-MED ONCE .ROUTE; Start 08/03/24 at 11:23; Stop 08/03/24 at 11:23; Status DC Lidocaine HCl 20 ml STK-MED ONCE .ROUTE; Start 08/03/24 at 11:33; Stop 08/03/24 at 11:33; Status DC Bupivacaine HCl 5 mg STK-MED ONCE .ROUTE; Start 08/03/24 at 11:33; Stop 08/03/24 at 11:33; Status DC Lidocaine HCl 20 ml STK-MED ONCE .ROUTE; Start 08/03/24 at 11:44; Stop 08/03/24 at 11:44; Status DC Cefazolin Sodium 3 gm STK-MED ONCE IVPB Last administered on 08/03/24at 11:10; Start 08/03/24 at 11:10; Stop 08/03/24 at 12:12; Status DC Lidocaine HCl 40 ml STK-MED ONCE MISC Last administered on 08/03/24at 11:13; Start 08/03/24 at 11:13; Stop 08/03/24 at 12:12; Status DC Bupivacaine HCl 150 mg STK-MED ONCE INJ Last administered on 08/03/24at 11:14; Start 08/03/24 at 11:14; Stop 08/03/24 at 12:12; Status DC Ketorolac Tromethamine 30 mg STK-MED ONCE .ROUTE; Start 08/03/24 at 13:56; Stop 08/03/24 at 13:56; Status DC Lactated Ringer's 1,000 ml @ 125 mls/hr Q8H IV Last administered on 08/05/24at 06:33; Start 08/03/24 at 14:30; Stop 09/02/24 at 14:29 Morphine Sulfate 4 mg Q4H PRN IVP Last administered on 08/05/24at 02:41; Start 08/03/24 at 14:30; Stop 08/08/24 at 14:29 Ondansetron HCl 4 mg Q6H PRN IVP Last administered on 08/04/24at 17:50; Start 08/03/24 at 14:30; Stop 09/02/24 at 14:29 Famotidine 20 mg BID IV Last administered on 08/05/24at 08:56; Start 08/03/24 at 21:00; Stop 09/02/24 at 20:59 Enoxaparin Sodium 30 mg BID SQ Last administered on 08/05/24at 08:56; Start 08/03/24 at 21:00; Stop 09/02/24 at 20:59 Insulin Human Regular INSULIN SLIDING SCAL... ACHS SQ; Start 08/03/24 at 16:30; Stop 09/02/24 at 16:29 Ketorolac Tromethamine 30 mg Q6H PRN IM Last administered on 08/05/24at 06:37; Start 08/03/24 at 14:30; Stop 08/08/24 at 14:29 Cefazolin Sodium 2 gm Q8H IVPB Last administered on 08/04/24at 02:51; Start 08/03/24 at 14:30; Stop 08/03/24 at 22:31; Status DC Meperidine HCl 25 mg STK-MED ONCE .ROUTE Last administered on 08/03/24at 15:17; Start 08/03/24 at 15:15; Stop 08/03/24 at 15:15; Status DC Hydralazine HCl 10 mg Q6H PRN IV; Start 08/03/24 at 19:00; Stop 09/02/24 at 18:59 Magnesium Sulfate 50 ml @ 0 mls/hr PROTOCOL PRN IV; Start 08/03/24 at 20:30; Stop 09/02/24 at 20:29 Potassium Chloride 100 ml @ 100 mls/hr AD PRN IV; Start 08/03/24 at 20:30; Stop 09/02/24 at 20:29 Potassium Chloride 20 meq AD PRN PO; Start 08/03/24 at 20:30; Stop 09/02/24 at 20:29 Potassium Chloride 20 meq AD PRN PO; Start 08/03/24 at 20:30; Stop 09/02/24 at 20:29 Cefazolin Sodium 2 gm ONCE ONCE IVPB; Start 08/04/24 at 03:44; Stop 08/04/24 at 03:45; Status DC MEHDI ESPINO Jr. Aug 05, 2024 10:51
--- NOTE | 2024-08-05 10:59 | NUR ---
DISCHARGE TED OMER FOR DR. GARCIA CALLED REGARDING PATIENT'S ANTICIPATED DISCHARGE. PER MEHDI, DR. GARCIA STATED WILL KEEP PATIENT ONE MORE NIGHT AND POSSIBLE DISCHARGE 08/06/24. NO NEW ORDERS GIVEN. WILL CONTINUE TO MONITOR.
--- NOTE | 2024-08-05 12:10 | NUR ---
Pt reports that he needs a 2ww at home for DC. He uses walker to walk into [facility] because the power chair doesnt fit. Pt does have an "old walker" at home. Request new 2ww per PA
--- NOTE | 2024-08-05 13:41 | PN ---
[facility] PROGRESS NOTE Date of Service: Aug 05, 2024 Time of Service: 13:39 SUBJECTIVE: [ ] The patient is awake alert oriented x3, s/p Gastric bypass: is recuperating well, tolerating diet. will follow surgeon recommendations. primary nurse reports no events overnight. 08/05 patient awake, hemodynamically stable, no acute events overnight per my discussion with the nurse that is taking care of the patient, BP 153/80, afebrile, saturating normal on room air, no chest pain, shortness shortness for breath, no nausea, no vomiting. Patient admits that he is tolerating current diet. REVIEW OF SYSTEMS CONSTITUTIONAL: Denies fevers, chills, or night sweats. No unintentional weight loss reported. NEUROLOGICAL: Denies headache, amaurosis fugax, motor weakness, sensory deficit, vertigo/spinning sensation, gait abnormalities, or tremors. ENT: No hearing loss, otalgia, otorrhea, rhinitis, rhinorrhea, hoarseness, or sore throat. CARDIOVASCULAR: Denies any exertional angina, dyspnea on exertion, orthopnea, paroxysmal nocturnal dyspnea, palpitations, life-threatening arrhythmias, claudication. PULMONARY: Denies any shortness of breath, cough, phlegm/sputum, hemoptysis, pleuritic chest pain. SLEEP: Denies morning headaches, daytime somnolence or napping. Denies difficulty falling asleep, staying asleep, waking from sleep. Denies knowledge of snoring. GASTROINTESTINAL: Denies any type of dysphagia to either liquids or solids. Denies nausea, vomiting, pyrosis, early satiety, abdominal pain, diarrhea, constipation, or changes in stool consistency or caliber. Denies coffee-ground emesis, hematemesis, hematochezia, or melanotic stools. GENITOURINARY: Denies frequency, urgency, nocturia, hematuria or incontinence (Storage/Irritative symptoms.) Low urinary stream, straining to void, urinary intermittency or hesitancy, splitting of the voiding stream, terminal dribbling. ENDOCRINOLOGIC: Denies polyuria, polydipsia, polyphagia or heat/cold intolerances. HEMATOLOGIC: Denies thrombophilia/previous clots, or coagulopathy/bleeding disorders. ONCOLOGIC: Denies personal history of malignancy. DERMATOLOGIC: Denies rashes or pruritus. PSYCHIATRIC: Denies any suicidal or homicidal ideation. Denies hallucinations. PHYSICAL EXAM GENERAL APPEARANCE: The patient is awake, alert, and oriented, in no acute cardiopulmonary distress. NEUROLOGICAL: Cranial nerves II-XII grossly intact. Motor is 5/5 in bilateral upper and lower extremities proximal to distal. No sensory deficits. HEENT: Face is symmetric. Pupils are equal and reactive. Extraocular movements are intact. NECK: Supple. No JVD. No thyromegaly. No submental, submandibular, pre-/p ostauricular, occipital or supraclavicular lymphadenopathy. CHEST: Normal chest expansion. No Telemetry. LUNGS: Absence of any rales, rhonchi or any wheezing. CARDIOVASCULAR: Regular. S1 and S2 normal. No appreciable rubs, murmurs or gallops. ABDOMEN: Soft, nontender, and nondistended. There is no rebound, voluntary guarding, or rigidity. : Deferred. No Felder. EXTREMITIES: Non-edematous and not cyanotic. No clubbing. Good capillary refill. SKIN: No skin breakdown. Vital Signs (last 8hr) Date Time Temp Pulse Resp B/P (MAP) Pulse Ox O2 Delivery O2 Flow Rate FiO2 08/05/24 12:00 98.2 81 20 153/80 97 Room Air 21 08/05/24 09:30 96 Room Air* 0 21 08/05/24 08:00 99.0 77 18 146/82 95 Room Air 21 LABS: Laboratory: Test 08/05/24 11:30 08/05/24 09:28 08/04/24 05:02 Range/Units Whole Blood Glucose 90 70-110 MG/DL White Blood Count 10.6 4.8-10.8 K/uL Red Blood Count 3.81 L 4.50-6.20 MIL/uL Hemoglobin 10.9 L 14.0-18.0 g/dL Hematocrit 35.0 L 42-54 % Mean Corpuscular Volume 91.9 79-99 fL Mean Corpuscular Hemoglobin 28.6 27.0-33.0 pg Mean Corpuscular Hemoglobin Concent 31.1 L 32.0-36.0 g/dL Red Cell Distribution Width 14.6 11.0-15.5 % Platelet Count 244 130-400 K/uL Mean Platelet Volume 11.0 H 7.5-10.5 fL Nucleated Red Blood Cells 0.0 0.0-0.19 % Sodium Level 139 136-145 mmol/L Potassium Level 4.4 3.5-5.1 mmol/L Chloride Level 102 101-111 mmol/L Carbon Dioxide Level 31 21-32 mmol/L Blood Urea Nitrogen 12 7-18 mg/dL Creatinine 1.3 0.5-1.3 mg/dL Glomerular Filtration Rate Calc 67 >90 mL/min Random Glucose 95 70-105 mg/dL Total Calcium 8.4 L 8.5-10.1 mg/dL Magnesium Level 2.00 1.80-2.40 mg/dL Total Bilirubin 0.7 0.2-1.0 mg/dL Aspartate Amino Transf (AST/SGOT) 36 10-37 U/L Alanine Aminotransferase (ALT/SGPT) 51 12-78 U/L Alkaline Phosphatase 69 50-136 U/L Total Protein 7.1 6.0-8.3 g/dL Albumin 3.1 L 3.5-5.0 g/dL Immature Granulocyte % (Auto) 0.4 0-1 % Neutrophils (%) (Auto) 76.4 40.0-77.0 % Lymphocytes (%) (Auto) 14.1 L 21.0-51.0 % Monocytes (%) (Auto) 8.8 3.0-13.0 % Eosinophils (%) (Auto) 0.1 0.0-8.0 % Basophils (%) (Auto) 0.2 0.0-5.0 % Neutrophils # (Auto) 9.5 H 1.8-7.7 K/uL Lymphocytes # (Auto) 1.8 1.0-4.8 K/uL Monocytes # (Auto) 1.1 H 0.1-1.0 K/uL Eosinophils # (Auto) 0.01 0.00-0.70 K/uL Basophils # (Auto) 0.03 0.00-0.20 K/uL Absolute Immature Granulocyte (auto 0.05 0-1 K/uL Red Blood Cell Morphology See comments Hemoglobin A1c 5.4 4.0-6.0 % Estimated Average Glucose (eAG) 108 70-126 mg/dL Triglycerides Level 61 30-200 mg/dL Cholesterol Level 73 # <200 mg/dL LDL Cholesterol 41 0-99 mg/dL HDL Cholesterol 30 29-71 mg/dL Thyroid Stimulating Hormone (TSH) 0.95 # 0.36-3.74 uIU/mL Current Medications Medications (Trade) Dose Ordered Sig/Melo Route PRN Reason Start Time Stop Time Status Last Admin Dose Admin Cefazolin Sodium (Ancef) 2 gm Q8H IVPB 08/03/24 14:30 08/03/24 22:31 DC 08/04/24 02:51 2 GM Enoxaparin Sodium (Lovenox) 30 mg BID SQ 08/03/24 21:00 09/02/24 20:59 08/05/24 08:56 30 MG Famotidine (Pepcid 20mg Vial) 20 mg BID IV 08/03/24 21:00 09/02/24 20:59 08/05/24 08:56 20 MG Hydralazine HCl (APRESOLine 20MG INJ) 10 mg Q6H PRN IV ADMINISTER FOR SBP > 160 08/03/24 19:00 09/02/24 18:59 Insulin Human Regular (humuLIN R 100 UNIT/ML 3ML) INSULIN SLIDING SCAL... ACHS SQ 08/03/24 16:30 09/02/24 16:29 Ketorolac Tromethamine (toRADol) 30 mg Q6H PRN IM MODERATE PAIN (4-6) 08/03/24 14:30 08/08/24 14:29 08/05/24 06:37 30 MG Lactated Ringer's 1,000 ml @ 125 mls/hr Q8H IV 08/03/24 14:30 09/02/24 14:29 08/05/24 06:33 125 MLS/HR Magnesium Sulfate 50 ml @ 0 mls/hr PROTOCOL PRN IV OTHER [SEE ORDER COMMENTS] 08/03/24 20:30 09/02/24 20:29 Morphine Sulfate (morPHINE 4MG SYG) 4 mg Q4H PRN IVP SEVERE PAIN (7-10) 08/03/24 14:30 08/08/24 14:29 08/05/24 02:41 4 MG Ondansetron HCl (zoFRAN 4MG INJ) 4 mg Q6H PRN IVP NAUSEA/VOMITING 08/03/24 14:30 09/02/24 14:29 08/04/24 17:50 4 MG Potassium Chloride 100 ml @ 100 mls/hr AD PRN IV POTASSIUM PROTOCOL 08/03/24 20:30 09/02/24 20:29 Potassium Chloride (K-Dur/Klor-Con 20meq) 20 meq AD PRN PO POTASSIUM PROTOCOL 08/03/24 20:30 09/02/24 20:29 Potassium Chloride (KCl 10% Elixir 20meq/15ml) 20 meq AD PRN PO POTASSIUM PROTOCOL 08/03/24 20:30 09/02/24 20:29 DIAGNOSTICS / RADIOLOGY: [ ] ASSESSMENT: Severe Morbid Obesity S/P Robotic gastric bypass on 08/03/2024 performed by pato FRANK POA Obstructive Sleep Apnea on CPAP Therapy at home POA Hypertension POA Hyperlipidemia POA Peripheral Neuropathy POA Active cigarette smoker POA Positive marijuana use POA History of Complete Bilateral knee replacement POA PLAN: Patient remains admitted to medical floor diet: CLD bariatric continue famotidine 20 mg b.i.d. for GI prophylaxis continue sliding scale insulin a.c. and HS and hypoglycemia protocol continue replace electrolytes as needed per protocol p.r.n. medication for pain nausea fever and vomiting Counseled on cigarette smoking and marijuana use cessation Case management service requested We will check labs in a.m. Further recommendations to follow depending upon hospitalization course Disposition: Overall doing well, we will remain for overnight observation per surgical recommendations, possible discharge home tomorrow. PAUL WELCH MD Aug 05, 2024 13:41
[2024-08-06] VITALS: BP 134/73; PULSE 75; RESP 18; TEMP 98.1
[2024-08-06 04:00] VITALS: BP 124/80; PULSE 67; RESP 18; TEMP 97.9
[2024-08-06 04:14] LABS: HEMATOCRIT 33.4 % (42-54); MEAN CORPUSCULAR HEMOGLOBIN 28.8 pg (27.0-33.0); MEAN CORPUSCULAR HGB CONC 31.1 g/dL (32.0-36.0); MEAN CORPUSCULAR VOLUME 92.5 fL (79-99); RED BLOOD CELL COUNT(AUTO) 3.61 MIL/uL (4.50-6.20); RED CELL DISTRIBUTION WIDTH 14.2 % (11.0-15.5); WHITE BLOOD COUNT (AUTO) 9.3 K/uL (4.8-10.8)
[2024-08-06 04:29] LABS: ALBUMIN 2.9 g/dL (3.5-5.0); BILIRUBIN,TOTAL 0.8 mg/dL (0.2-1.0); CREATININE 1.2 mg/dL (0.5-1.3); POTASSIUM 4.4 mmol/L (3.5-5.1); TOTAL PROTEIN, SERUM 6.8 g/dL (6.0-8.3)
[2024-08-06 08:00] VITALS: BP 159/84; PULSE 76; RESP 20; TEMP 98.5; O2SAT 96
--- NOTE | 2024-08-06 08:43 | PN ---
[facility] PROGRESS NOTE Date of Service: Aug 06, 2024 Time of Service: 08:43 SUBJECTIVE: [ ] The patient is awake alert oriented x3, s/p Gastric bypass: is recuperating well, tolerating diet. will follow surgeon recommendations. primary nurse reports no events overnight. 08/05 patient awake, hemodynamically stable, no acute events overnight per my discussion with the nurse that is taking care of the patient, BP 153/80, afebrile, saturating normal on room air, no chest pain, shortness shortness for breath, no nausea, no vomiting. Patient admits that he is tolerating current diet. 08/06 patient is seen and examined, no acute events overnight, tolerating diet, hemodynamically stable, blood tests unremarkable. No chest pain, no shortness a breath, no nausea, no vomiting. Possible discharge home today if cleared by General surgery. Okay for the patient to be discharged home from medical standpoint. REVIEW OF SYSTEMS CONSTITUTIONAL: Denies fevers, chills, or night sweats. No unintentional weight loss reported. NEUROLOGICAL: Denies headache, amaurosis fugax, motor weakness, sensory deficit, vertigo/spinning sensation, gait abnormalities, or tremors. ENT: No hearing loss, otalgia, otorrhea, rhinitis, rhinorrhea, hoarseness, or sore throat. CARDIOVASCULAR: Denies any exertional angina, dyspnea on exertion, orthopnea, paroxysmal nocturnal dyspnea, palpitations, life-threatening arrhythmias, adi dication. PULMONARY: Denies any shortness of breath, cough, phlegm/sputum, hemoptysis, pleuritic chest pain. SLEEP: Denies morning headaches, daytime somnolence or napping. Denies difficulty falling asleep, staying asleep, waking from sleep. Denies knowledge of snoring. GASTROINTESTINAL: Denies any type of dysphagia to either liquids or solids. Denies nausea, vomiting, pyrosis, early satiety, abdominal pain, diarrhea, constipation, or changes in stool consistency or caliber. Denies coffee-ground emesis, hematemesis, hematochezia, or melanotic stools. GENITOURINARY: Denies frequency, urgency, nocturia, hematuria or incontinence (Storage/Irritative symptoms.) Low urinary stream, straining to void, urinary intermittency or hesitancy, splitting of the voiding stream, terminal dribbling. ENDOCRINOLOGIC: Denies polyuria, polydipsia, polyphagia or heat/cold intolerances. HEMATOLOGIC: Denies thrombophilia/previous clots, or coagulopathy/bleeding disorders. ONCOLOGIC: Denies personal history of malignancy. DERMATOLOGIC: Denies rashes or pruritus. PSYCHIATRIC: Denies any suicidal or homicidal ideation. Denies hallucinations. PHYSICAL EXAM GENERAL APPEARANCE: The patient is awake, alert, and oriented, in no acute cardiopulmonary distress. NEUROLOGICAL: Cranial nerves II-XII grossly intact. Motor is 5/5 in bilateral upper and lower extremities proximal to distal. No sensory deficits. HEENT: Face is symmetric. Pupils are equal and reactive. Extraocular movements are intact. NECK: Supple. No JVD. No thyromegaly. No submental, submandibular, pre- /postauricular, occipital or supraclavicular lymphadenopathy. CHEST: Normal chest expansion. No Telemetry. LUNGS: Absence of any rales, rhonchi or any wheezing. CARDIOVASCULAR: Regular. S1 and S2 normal. No appreciable rubs, murmurs or gallops. ABDOMEN: Soft, nontender, and nondistended. There is no rebound, voluntary guarding, or rigidity. : Deferred. No Felder. EXTREMITIES: Non-edematous and not cyanotic. No clubbing. Good capillary refill. SKIN: No skin breakdown. Vital Signs (last 8hr) Date Time Temp Pulse Resp B/P (MAP) Pulse Ox O2 Delivery O2 Flow Rate FiO2 08/06/24 08:00 98.4 76 20 159/84 96 Room Air 21 08/06/24 04:00 97.9 67 18 124/80 97 CPAP LABS: Laboratory: Test 08/06/24 05:27 08/06/24 04:07 Range/Units Whole Blood Glucose 79 70-110 MG/DL White Blood Count 9.3 4.8-10.8 K/uL Red Blood Count 3.61 L 4.50-6.20 MIL/uL Hemoglobin 10.4 L 14.0-18.0 g/dL Hematocrit 33.4 L 42-54 % Mean Corpuscular Volume 92.5 79-99 fL Mean Corpuscular Hemoglobin 28.8 27.0-33.0 pg Mean Corpuscular Hemoglobin Concent 31.1 L 32.0-36.0 g/dL Red Cell Distribution Width 14.2 11.0-15.5 % Platelet Count 224 130-400 K/uL Mean Platelet Volume 10.8 H 7.5-10.5 fL Nucleated Red Blood Cells 0.0 0.0-0.19 % Sodium Level 137 136-145 mmol/L Potassium Level 4.4 3.5-5.1 mmol/L Chloride Level 102 101-111 mmol/L Carbon Dioxide Level 31 21-32 mmol/L Blood Urea Nitrogen 15 7-18 mg/dL Creatinine 1.2 0.5-1.3 mg/dL Glomerular Filtration Rate Calc 74 >90 mL/min Random Glucose 78 70-105 mg/dL Total Calcium 8.4 L 8.5-10.1 mg/dL Magnesium Level 2.00 1.80-2.40 mg/dL Total Bilirubin 0.8 0.2-1.0 mg/dL Aspartate Amino Transf (AST/SGOT) 33 10-37 U/L Alanine Aminotransferase (ALT/SGPT) 44 12-78 U/L Alkaline Phosphatase 65 50-136 U/L Total Protein 6.8 6.0-8.3 g/dL Albumin 2.9 L 3.5-5.0 g/dL Current Medications Medications (Trade) Dose Ordered Sig/Melo Route PRN Reason Start Time Stop Time Status Last Admin Dose Admin Cefazolin Sodium (Ancef) 2 gm Q8H IVPB 08/03/24 14:30 08/03/24 22:31 DC 08/04/24 02:51 2 GM Enoxaparin Sodium (Lovenox) 30 mg BID SQ 08/03/24 21:00 09/02/24 20:59 08/05/24 20:13 30 MG Famotidine (Pepcid 20mg Vial) 20 mg BID IV 08/03/24 21:00 09/02/24 20:59 08/05/24 20:12 20 MG Hydralazine HCl (APRESOLine 20MG INJ) 10 mg Q6H PRN IV ADMINISTER FOR SBP > 160 08/03/24 19:00 09/02/24 18:59 Insulin Human Regular (humuLIN R 100 UNIT/ML 3ML) INSULIN SLIDING SCAL... ACHS SQ 08/03/24 16:30 09/02/24 16:29 Ketorolac Tromethamine (toRADol) 30 mg Q6H PRN IM MODERATE PAIN (4-6) 08/03/24 14:30 08/08/24 14:29 08/05/24 20:14 30 MG Lactated Ringer's 1,000 ml @ 125 mls/hr Q8H IV 08/03/24 14:30 09/02/24 14:29 08/05/24 06:33 125 MLS/HR Magnesium Sulfate 50 ml @ 0 mls/hr PROTOCOL PRN IV OTHER [SEE ORDER COMMENTS] 08/03/24 20:30 09/02/24 20:29 Morphine Sulfate (morPHINE 4MG SYG) 4 mg Q4H PRN IVP SEVERE PAIN (7-10) 08/03/24 14:30 08/08/24 14:29 08/06/24 03:19 4 MG Ondansetron HCl (zoFRAN 4MG INJ) 4 mg Q6H PRN IVP NAUSEA/VOMITING 08/03/24 14:30 09/02/24 14:29 08/06/24 03:18 4 MG Potassium Chloride 100 ml @ 100 mls/hr AD PRN IV POTASSIUM PROTOCOL 08/03/24 20:30 09/02/24 20:29 Potassium Chloride (K-Dur/Klor-Con 20meq) 20 meq AD PRN PO POTASSIUM PROTOCOL 08/03/24 20:30 09/02/24 20:29 Potassium Chloride (KCl 10% Elixir 20meq/15ml) 20 meq AD PRN PO POTASSIUM PROTOCOL 08/03/24 20:30 09/02/24 20:29 DIAGNOSTICS / RADIOLOGY: [ ] ASSESSMENT: Severe Morbid Obesity S/P Robotic gastric bypass on 08/03/2024 performed by pato FRANK POA Obstructive Sleep Apnea on CPAP Therapy at home POA Hypertension POA Hyperlipidemia POA Peripheral Neuropathy POA Active cigarette smoker POA Positive marijuana use POA History of Complete Bilateral knee replacement POA PLAN: Patient remains admitted to medical floor diet: CLD bariatric continue famotidine 20 mg b.i.d. for GI prophylaxis continue sliding scale insulin a.c. and HS and hypoglycemia protocol continue replace electrolytes as needed per protocol p.r.n. medication for pain nausea fever and vomiting Counseled on cigarette smoking and marijuana use cessation Case management service requested We will check labs in a.m. Further recommendations to follow depending upon hospitalization course Disposition: Overall doing well, possible discharge home today if cleared by General surgery. From medical standpoint okay for the patient to be discharged home today, we will sign off. PAUL WELCH MD Aug 06, 2024 08:43
--- NOTE | 2024-08-06 10:08 | DS ---
Discharge Summary HOSPITAL COURSE SUMMARY: [ This is a 48-year-old male postop day two for a gastric bypass by Dr. Her Interval history: This 48-year-old male seen in his room resting patient initially presenting to the hospital with issues of GERD and morbid obesity with a scheduled bariatric surgery. Patient tolerated procedure very well. Patient however continued with postoperative gas discomfort which is significantly improved. Patient has worked with physical therapy and now recommendations have been made in patient cleared for discharge Physical exam General: Awake alert and oriented Heart: Regular rate and rhythm} Lungs: Clear to auscultation no distress Abdomen: [Soft, nontender, nondistended expected postoperative discomfort Assessment : This is a 48-year-old male status post gastric bypass Plan: Patient to continue with strict adherence to bariatric phase one diet Continue with ambulation Practice appropriate fall risk practices Patient to follow up in one week Dr. Foss is office Surgery to be updated with any further acute events but patient to be cleared for discharge today] HIGH SCHOOL COACH(S): [Dr. Dolan] PROCEDURES: [Gastric bypass] PROBLEM(S): [None] DISCHARGE INSTRUCTIONS: [ Strict adherence bariatric phase one diet Encourage ambulation Follow up in two weeks Strict compliance with Lovenox daily] Home Meds Reported Medications Multivitamin (Multivitamin) 1 Each Tablet, 1 TAB PO DAILYLUNCH for 30 Days, #30 TAB 0 Refills 06/26/24 Atorvastatin Calcium (Atorvastatin Calcium) 20 Mg Tablet, 20 MG PO DAILYLUNCH, TAB 06/26/24 Aspirin (Aspirin) 81 Mg Tab.chew, 81 MG PO DAILYLUNCH, TAB.CHEW 06/26/24 Duloxetine HCl (Duloxetine HCl) 20 Mg Capsule.dr, 20 MG PO DAILYLUNCH, CAP 06/26/24 Trazodone HCl (Trazodone HCl) 50 Mg Tablet, 50 MG PO HS, TAB 06/26/24 Time spent arranging discharge: 1-30 minutes MEHDI ESPINO Jr. Aug 06, 2024 10:08
[2024-08-06 12:00] VITALS: BP 149/81; PULSE 80; RESP 20; TEMP 98.3
--- NOTE | 2024-08-06 15:43 | NUR ---
NOTE DISCHARGE INSTRUCTIONS GIVEN TO PATIENT. HE STATED UNDERSTANDING. ALL QUESTIONS ANSWERED.
[2024-08-06 16:00] VITALS: BP 167/85; PULSE 69; RESP 20; TEMP 98.6
== END 2024-08-06 17:28 | disposition home or self-care (01) ==
LOC: DAHIP 08-03 08:02 → EDSTATUS 08-03 10:00 → 4CH 08-03 15:45
PROVIDERS: ADMIT Surgery; ATTEND Surgery
DX: E66.01 Morbid (severe) obesity due to excess calories (principal); G47.33 Obstructive sleep apnea (adult) (pediatric); F41.9 Anxiety disorder, unspecified; F32.A Depression, unspecified; I10 Essential (primary) hypertension; K21.9 Gastro-esophageal reflux disease without esophagitis; E11.42 Type 2 diabetes mellitus with diabetic polyneuropathy; G62.9 Polyneuropathy, unspecified; E78.5 Hyperlipidemia, unspecified; F12.90 Cannabis use, unspecified, uncomplicated; F17.210 Nicotine dependence, cigarettes, uncomplicated; Z86.2 Personal history of diseases of the blood and blood-forming organs and certain disorders involving the immune mechanism; Z96.653 Presence of artificial knee joint, bilateral; Z68.44 Body mass index [BMI] 60.0-69.9, adult
CPT/HCPCS: 80048 ×2; 85025 ×2; 85610; 85730; 36415 ×4; 43644; 96372 ×6; 96365; 96375 ×2; 82948 ×14; 96376 ×3; 96366; 83036; 84443; 83735 ×3; 80061; 97161; 97116 ×3; 97530 ×4; 80053 ×2; 85027 ×2; A6260; G0378 ×64; G0379; A4663; J7030; J7120 ×2; A4215 ×2; J0690 ×5; J3490 ×9; J3010; J0330; J1650 ×6; J2250; J2704; J2405 ×3; J2270 ×6; J1885 ×5; J2710; J0665 ×2; J2175; C1769; A4223; A4222; A4221; A4600; 43235